=== PATIENT | female | born 1975 ===

== ENCOUNTER 2025-05-16 17:01 | Emergency (ER) | payer OTHER, SELFPAY ==
[2025-05-16 17:03] VITALS: BP 177/98; PULSE 90; RESP 15; TEMP 37.1; O2SAT 99
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
[2025-05-16] MEDS: Ibuprofen 400 MG TAB PO (18:49)
== END 2025-05-16 19:16 | disposition home or self-care (01) ==
PROVIDERS: Emergency Provider Physician Assistant; PCP Internal Medicine
DX: S43.401A Unspecified sprain of right shoulder joint, initial encounter (principal); Y93.23 Activity, snow (alpine) (downhill) skiing, snowboarding, sledding, tobogganing and snow tubing; V00.321A Fall from snow-skis, initial encounter
CPT/HCPCS: 99283 ×2; 73030